=== PATIENT | female | born 1950 | race Caucasian/White ===

== ENCOUNTER 2017-06-20 09:00 | Inpatient (IN) | payer OTHER ==
[~2017-06-20] VITALS: Ht 160 cm; Wt 55.8 kg
[2017-06-20] MEDS ORDERED: NEURONTIN300 MG (11:10)
[2017-06-20] MEDS ORDERED: NEURONTIN800 MG (11:11)
[2017-06-20] MEDS ORDERED: CIPRO500 MG (11:11)
[2017-06-20] MEDS ORDERED: PEPCID COMPLET1 EACH (11:11)
== END 2017-07-06 14:35 | disposition home health service (06) | DRG 329 ==
LOC: MEDJ 06-27 08:40 → SURG 06-27 08:40 → O/R 06-27 08:40 → SURH 06-27 09:00 → SURG 06-27 18:57 → SURH 06-27 22:00 → MEDJ 06-28 20:39
PROVIDERS: Colon & Rectal Surgery
PROC: 0DTP4ZZ Resection of Rectum, Percutaneous Endoscopic Approach (ICD-10-PCS; 2017-06-27)
PROC: 0D1M4Z4 Bypass Descending Colon to Cutaneous, Percutaneous Endoscopic Approach (ICD-10-PCS; 2017-06-27)
PROC: 0UT64ZZ Resection of Left Fallopian Tube, Percutaneous Endoscopic Approach (ICD-10-PCS; 2017-06-27)
PROC: 0UT14ZZ Resection of Left Ovary, Percutaneous Endoscopic Approach (ICD-10-PCS; 2017-06-27)
PROC: 0DT84ZZ Resection of Small Intestine, Percutaneous Endoscopic Approach (ICD-10-PCS; 2017-06-27)
PROC: 07TC4ZZ Resection of Pelvis Lymphatic, Percutaneous Endoscopic Approach (ICD-10-PCS; 2017-06-27)
PROC: 0DTE4ZZ Resection of Large Intestine, Percutaneous Endoscopic Approach (ICD-10-PCS; principal; 2017-06-27 22:00)
PROC: 30233N1 Transfusion of Nonautologous Red Blood Cells into Peripheral Vein, Percutaneous Approach (ICD-10-PCS; 2017-06-30)
PROC: BW21YZZ Computerized Tomography (CT Scan) of Abdomen and Pelvis using Other Contrast (ICD-10-PCS; 2017-07-02)
DX: C20 Malignant neoplasm of rectum (principal); A41.9 Sepsis, unspecified organism; R65.20 Severe sepsis without septic shock; C79.82 Secondary malignant neoplasm of genital organs; C79.62 Secondary malignant neoplasm of left ovary; C78.5 Secondary malignant neoplasm of large intestine and rectum; K56.690 Other partial intestinal obstruction; N17.8 Other acute kidney failure; D62 Acute posthemorrhagic anemia; T81.4XXA Infection following a procedure, initial encounter; N39.0 Urinary tract infection, site not specified; R59.0 Localized enlarged lymph nodes; N99.0 Postprocedural (acute) (chronic) kidney failure; N99.89 Other postprocedural complications and disorders of genitourinary system

== ENCOUNTER 2018-03-30 19:47 | Inpatient (IN) | payer OTHER ==
[~2018-03-30] VITALS: Ht 160 cm; Wt 54.4 kg
[~2018-03-30 19:47] MED LIST: CIPRO500 MG; NEURONTIN300 MG; NEURONTIN800 MG; PEPCID COMPLET1 EACH
== END 2018-04-03 18:47 | disposition home or self-care (01) | DRG 388 ==
LOC: SURH 19:47
PROC: BW3GYZZ Magnetic Resonance Imaging (MRI) of Pelvic Region using Other Contrast (ICD-10-PCS; principal; 2018-04-02)
DX: K56.690 Other partial intestinal obstruction (principal); A41.89 Other specified sepsis; N17.8 Other acute kidney failure; N39.0 Urinary tract infection, site not specified; C19 Malignant neoplasm of rectosigmoid junction; D72.828 Other elevated white blood cell count; Z93.3 Colostomy status
CPT/HCPCS: 72198